=== PATIENT | female | born 1995 | race Caucasian/White ===

== ENCOUNTER 2020-05-16 20:05 | Inpatient (IN) ==
[2020-05-16 21:09] LABS: Basophils % 0.3 % (0.0-0.8); Eosinophils # 0.2 10*3/uL (0.0-0.87); Eosinophils % 1.4 % (0.00-10.9); Hemoglobin 10.7 GM/DL (12.0-16.0); Immature Granulocytes % 1.1 %; Immature Granulocytes Absolute 0.12 #; Lymphocytes # 2.6 10*3/uL (1.4-4.0); Lymphocytes % 23.2 % (21.3-54.2); Mean Corpuscular HGB Conc 34.5 GM/DL (32-36); Mean Corpuscular Volume 90.6 FL (87-102); Mean Platelet Volume 10.3 FL (9.6-12.0); Monocytes % 6.8 % (1.7-12.7); Neutrophils % 67.2 % (38.7-73.9); Platelet Count 224 T/CUMM (130-400); Red Blood Count 3.42 MC/CUMM (3.8-5.5); Red Cell Distribution Width 13.3 % (9.3-17.3)
[2020-05-16 21:23] LABS: INR 0.9; PT Patient Result 9.6 SECS (9.8-11.9)
[2020-05-16 21:26] LABS: Alanine Aminotransferase 45 U/L (13-56); Albumin 1.9 G/DL (3.4-5.0); Alkaline Phosphatase 145 U/L (45-117); Aspartate Amino Transferase 36 U/L (0-37); Bilirubin,Total < 0.39 MG/DL (0.2-1.0); Blood Urea Nitrogen 14 MG/DL (7-18); Calcium 9.1 MG/DL (8.5-10.1); Estimated Glom Filtration Rate 91 ML/MIN; Glucose 95 MG/DL (74-106); Osmolality,Calculated 273.8 MOS/KG (273-304); Total Protein 5.9 G/DL (6.4-8.3); Uric Acid 6.7 MG/DL (2.6-6.0)
[2020-05-16 21:51] LABS: Bilirubin,Urine Negative (Negative); Blood, Urine Negative (Negative); Glucose,Urine (UA) Negative (Negative); Hyaline Casts,Urine 1 /LPF (0-3); Ketones,Urine Negative (Negative); Mucus,Urine Occasional /LPF (Occasional); Nitrite,Urine Negative (Negative); Protein,Urine >=500 MG/DL; RBC,Urine 1 /HPF (0-4); Squamous Epithelial Cell,Urine Occasional /HPF (0-10); Urine Appearance CLEAR (Clear); Urine Color Yellow (Yellow); Urine Specific Gravity 1.016 (1.001-1.035); Urine Urobilinogen < 2.0 EU/DL (0.2-1.0); WBC,Urine 2 /HPF (0-6)
[2020-05-16] MEDS ORDERED: ONDANSETRON 4 MG/2 ML VIAL IV PRN (22:10)
[2020-05-16] MEDS ORDERED: LACTATED RINGERS 1,000 ML IV ONE (22:10)
[2020-05-16] MEDS ORDERED: LABETALOL 200 MG TABLET ONE (22:23)
[2020-05-16] MEDS: LACTATED RINGERS 1,000 ML IV SCH (22:30)
[2020-05-17] MEDS ORDERED: BUTORPHANOL 2 MG/ML VIAL IV PRN (04:21)
[2020-05-17] MEDS ORDERED: NIFEdipine 10 MG CAPSULE PO ONE ×5 (06:25→20:37)
[2020-05-17] MEDS ORDERED: MAGNESIUM SULF RIDER 100 ML IV ONE ×3 (06:25→19:25)
[2020-05-17] MEDS ORDERED: ceFAZolin 2,000 MG in PREMIX 1 EACH IV ONE (06:26)
[2020-05-17] MEDS ORDERED: FAMOTIDINE 20 MG/2 ML VIAL IV ONE (06:27)
[2020-05-17] MEDS ORDERED: CITRIC ACID/SODIUM CITRATE 30 ML UDCUP PO ONE (06:27)
[2020-05-17] MEDS ORDERED: MAGNESIUM SULF DRIP 40 GM/1,000 ML ML IV SCH (06:30)
[2020-05-17] MEDS: LACTATED RINGERS 1,000 ML IV SCH ×2 (06:39→19:31)
[2020-05-17] MEDS ORDERED: OXYTOCIN/LR 20 UNIT/1,000 ML BAG IV ONE ×2 (08:02→10:09)
[2020-05-17] MEDS ORDERED: TRANEXAMIC ACID 1,000 MG/10 ML VIAL ONE (08:02)
[2020-05-17] MEDS ORDERED: miSOPROStoL 200 MCG TABLET ONE (08:02)
[2020-05-17] MEDS ORDERED: METHYLERGONOVINE 0.2 MG/1 ML AMP ONE (08:03)
[2020-05-17] MEDS ORDERED: OXYTOCIN 10 UNIT/ML VIAL ONE (08:03)
[2020-05-17] MEDS ORDERED: CARBOPROST TROMETHAMINE 250 MCG/ML AMP IM ONE (08:03)
[2020-05-17] MEDS ORDERED: SODIUM CHLORIDE 0.9% 0 ML IV ONE (08:09)
[2020-05-17] MEDS ORDERED: LABETALOL 200 MG TABLET PO SCH ×2 (09:00→22:09)
[2020-05-17] MEDS ORDERED: MORPHINE 10 MG/10 ML VIAL ONE (09:09)
[2020-05-17] MEDS ORDERED: BUPIVACAINE SPINAL 0.75% 2 ML AMP SPINAL ONE (09:55)
[2020-05-17] MEDS ORDERED: PHENYLEPHRINE 1 MG/10 ML SYRINGE IV ONE (09:55)
[2020-05-17] MEDS ORDERED: ONDANSETRON 4 MG/2 ML VIAL ONE (09:55)
[2020-05-17 10:01] LABS: Cord Arterial Blood HCO3 22.6 MMOL/L
[2020-05-17 10:04] LABS: Cord Venous Blood HCO3 23.4 MMOL/L; Cord Venous Blood PCO2 48.5 MMHG; Cord Venous Blood PO2 24.4
[2020-05-17] MEDS ORDERED: MAGNESIUM HYDROXIDE SUSP 30 ML UDCUP PO PRN (10:09)
[2020-05-17] MEDS ORDERED: ONDANSETRON 4 MG/2 ML VIAL IV PRN (10:09)
[2020-05-17] MEDS ORDERED: ACETAMINOPHEN 325 MG TABLET PO PRN (10:09)
[2020-05-17] MEDS ORDERED: RHO(D) IMMUNE GLOBULIN 300 MCG SYRINGE IM ONE (10:09)
[2020-05-17] MEDS ORDERED: HYDROmorphone 2 MG/1 ML VIAL IV PRN (10:41)
[2020-05-17] MEDS: IBUPROFEN 800 MG TABLET PO PRN (10:53)
[2020-05-17] MEDS ORDERED: ceFAZolin 1,000 MG in SYRINGE 1 EACH IV SCH (11:00)
[2020-05-17 15:48] LABS: Barbiturates Screen,Urine Negative (Negative); Benzodiazepines Screen,Urine Negative (Negative); Cannabinoid Screen,Urine Negative (Negative); Opiate Screen,Urine Positive (Negative); Phencyclidine Screen,Urine Negative (Negative)
[2020-05-17] MEDS: NICOTINE 14 MG/24 HR PATCH TRANSDERM SCH (16:55)
[2020-05-17] MEDS ORDERED: LORazepam 2 MG/1 ML VIAL IV PRN (17:26)
[2020-05-17 17:39] LABS: Basophils % 0.2 % (0.0-0.8); Eosinophils # 0.1 10*3/uL (0.0-0.87); Eosinophils % 0.6 % (0.00-10.9); Hematocrit 31.2 VOL% (35.7-47.0); Hemoglobin 10.5 GM/DL (12.0-16.0); Immature Granulocytes % 0.7 %; Lymphocytes % 14.4 % (21.3-54.2); Mean Corpuscular HGB Conc 33.7 GM/DL (32-36); Monocytes % 6.5 % (1.7-12.7); Neutrophils % 77.6 % (38.7-73.9); Platelet Count 221 T/CUMM (130-400); Red Blood Count 3.39 MC/CUMM (3.8-5.5); Red Cell Distribution Width 13.5 % (9.3-17.3); White Blood Count 13.5 T/CUMM (4-12)
[2020-05-17] MEDS: ceFAZolin 1,000 MG in SYRINGE 1 EACH IV SCH (17:53)
[2020-05-17] MEDS ORDERED: MAGNESIUM SULF DRIP 40 GM/1,000 ML ML IV ONE (19:18)
[2020-05-17] MEDS: MAGNESIUM SULF DRIP 40 GM/1,000 ML ML IV SCH (19:49)
[2020-05-17 19:55] LABS: Barbiturates Screen,Urine Negative (Negative); Benzodiazepines Screen,Urine Negative (Negative); Cannabinoid Screen,Urine Negative (Negative); Opiate Screen,Urine Positive (Negative); Phencyclidine Screen,Urine Negative (Negative)
[2020-05-17] MEDS: DOCUSATE SODIUM 100 MG CAPSULE PO SCH (21:27)
[2020-05-18 00:59] LABS: Basophils % 0.3 % (0.0-0.8); Eosinophils # 0.1 10*3/uL (0.0-0.87); Hematocrit 30.4 VOL% (35.7-47.0); Immature Granulocytes Absolute 0.14 #; Lymphocytes # 2.7 10*3/uL (1.4-4.0); Lymphocytes % 19.1 % (21.3-54.2); Mean Corpuscular HGB Conc 36.2 GM/DL (32-36); Mean Corpuscular Volume 89.4 FL (87-102); Monocytes % 4.8 % (1.7-12.7); Neutrophils % 73.8 % (38.7-73.9); Platelet Count 270 T/CUMM (130-400); Red Cell Distribution Width 13.3 % (9.3-17.3); White Blood Count 14.2 T/CUMM (4-12)
[2020-05-18] MEDS: IBUPROFEN 800 MG TABLET PO PRN ×2 (06:19→15:20)
[2020-05-18] MEDS: MULTIVITAMIN (PRENATAL) TABLET PO SCH (08:20)
[2020-05-18] MEDS: DOCUSATE SODIUM 100 MG CAPSULE PO SCH ×2 (08:20→21:18)
[2020-05-18] MEDS ORDERED: SODIUM CHLORIDE 0.9% 100 ML IV ONE (09:00)
[2020-05-18] MEDS: ceFAZolin 1,000 MG in SYRINGE 1 EACH IV SCH (09:03)
[2020-05-18] MEDS: LACTATED RINGERS 1,000 ML IV SCH (15:21)
[2020-05-18] MEDS: MAGNESIUM SULF DRIP 40 GM/1,000 ML ML IV SCH (16:22)
[2020-05-18] MEDS: NICOTINE 14 MG/24 HR PATCH TRANSDERM SCH (18:34)
[2020-05-18] MEDS ORDERED: METOCLOPRAMIDE 10 MG TABLET PO PRN (21:08)
[2020-05-18] MEDS: SIMETHICONE CHEW 80 MG TABLET PO PRN (21:17)
[2020-05-18] MEDS ORDERED: BISACODYL 10 MG SUPP RECTAL PRN (22:36)
[2020-05-19] MEDS: DOCUSATE SODIUM 100 MG CAPSULE PO SCH ×2 (09:25→20:27)
[2020-05-19] MEDS: IBUPROFEN 800 MG TABLET PO PRN ×2 (09:25→17:29)
[2020-05-19] MEDS: MULTIVITAMIN (PRENATAL) TABLET PO SCH (09:25)
[2020-05-19] MEDS: NICOTINE 14 MG/24 HR PATCH TRANSDERM SCH (09:27)
[2020-05-20] MEDS: IBUPROFEN 800 MG TABLET PO PRN ×3 (07:46→21:30)
[2020-05-20] MEDS: SIMETHICONE CHEW 80 MG TABLET PO PRN (07:46)
[2020-05-20] MEDS: MULTIVITAMIN (PRENATAL) TABLET PO SCH ×2 (07:46→09:27)
[2020-05-20] MEDS: DOCUSATE SODIUM 100 MG CAPSULE PO SCH ×3 (07:47→20:44)
[2020-05-20] MEDS: NICOTINE 14 MG/24 HR PATCH TRANSDERM SCH (12:15)
[2020-05-21] MEDS: NICOTINE 14 MG/24 HR PATCH TRANSDERM SCH (08:10)
[2020-05-21] MEDS: DOCUSATE SODIUM 100 MG CAPSULE PO SCH ×2 (08:15→21:05)
[2020-05-21] MEDS: MULTIVITAMIN (PRENATAL) TABLET PO SCH (08:16)
[2020-05-21] MEDS: IBUPROFEN 800 MG TABLET PO PRN ×2 (08:17→15:57)
[2020-05-22 07:13] VITALS: BP 150/105
[2020-05-22 09:00] LABS: Basophils # 0.1 10*3/uL (0.0-0.2); Basophils % 0.4 % (0.0-0.8); Eosinophils # 0.4 10*3/uL (0.0-0.87); Eosinophils % 2.6 % (0.00-10.9); Hemoglobin 11.8 GM/DL (12.0-16.0); Immature Granulocytes % 1.3 %; Immature Granulocytes Absolute 0.19 #; Lymphocytes # 3.2 10*3/uL (1.4-4.0); Lymphocytes % 21.3 % (21.3-54.2); Mean Corpuscular HGB Conc 33.7 GM/DL (32-36); Mean Corpuscular Volume 90.4 FL (87-102); Mean Platelet Volume 8.4 FL (9.6-12.0); Monocytes % 3.8 % (1.7-12.7); Neutrophils % 70.6 % (38.7-73.9); Platelet Count 370 T/CUMM (130-400); Red Blood Count 3.87 MC/CUMM (3.8-5.5); Red Cell Distribution Width 13.7 % (9.3-17.3); White Blood Count 14.9 T/CUMM (4-12)
[2020-05-22] MEDS: MULTIVITAMIN (PRENATAL) TABLET PO SCH (09:07)
[2020-05-22] MEDS: NICOTINE 14 MG/24 HR PATCH TRANSDERM SCH (09:07)
[2020-05-22] MEDS: DOCUSATE SODIUM 100 MG CAPSULE PO SCH (09:08)
[2020-05-22 09:27] LABS: Alanine Aminotransferase 26 U/L (13-56); Albumin 1.8 G/DL (3.4-5.0); Alkaline Phosphatase 107 U/L (45-117); Aspartate Amino Transferase 26 U/L (0-37); Bilirubin,Total < 0.39 MG/DL (0.2-1.0); Blood Urea Nitrogen 29 MG/DL (7-18); Calcium 8.4 MG/DL (8.5-10.1); Estimated Glom Filtration Rate 88 ML/MIN; Glucose 97 MG/DL (74-106); Osmolality,Calculated 271.4 MOS/KG (273-304)
== END 2020-05-22 15:00 | disposition home or self-care (01) | DRG 540 ==
LOC: N.LDOUT 20:05 → N.LD 20:07 → N.OB 05-17 14:24 → N.LD 05-17 19:20 → N.OB 05-18 20:40
PROVIDERS: ADMIT Obstetrics & Gynecology; ATTEND Obstetrics & Gynecology
PROC: LDCSECT (ICD-10-PCS; 2020-05-17 09:00)